=== PATIENT | female | born 1955 ===

== ENCOUNTER → 2019-04-28 11:59 | Outpatient (BNVA) | payer MEDICARE, MEDICAID, SELFPAY | PROVIDERS: Family Provider Internal Medicine; PCP Internal Medicine; Visit Provider Nurse Practitioner Family | DX: K74.60 Unspecified cirrhosis of liver (principal); E03.9 Hypothyroidism, unspecified; Z79.899 Other long term (current) drug therapy; E55.9 Vitamin D deficiency, unspecified; J44.9 Chronic obstructive pulmonary disease, unspecified; R09.02 Hypoxemia; Z85.41 Personal history of malignant neoplasm of cervix uteri; E78.2 Mixed hyperlipidemia | CPT/HCPCS: 80053; 80061; 81001; 82306; 83036; 84443; 85025; 87086 ==